=== PATIENT | female | born 1995 | race Caucasian/White ===

== ENCOUNTER 2018-07-09 04:12 | Emergency (ER) | payer BC, OTHER ==
[2018-07-09] MEDS ORDERED: NS 1,700 ML IV ONE (04:32)
[2018-07-09 04:51] LABS: PLATELET COUNT 240 10^3/uL (150-400)
--- NOTE | 2018-07-09 05:24 | EDPHY ---
H & P Stated Complaint: PT DX WITH UTI FROM [facility] LAST NIGHT AND STATES STILL FEELING BAD Time Seen by Provider: 07/09/18 04:23 HPI/ROS: HPI The patient presents with fever, myalgias, chills for the last 3-4 days. She was diagnosed yesterday at urgent care with urinary tract infection and was given a dose of ceftriaxone IM and a prescription for Keflex of which she took 1 tab last night. She has her urinalysis report with her which shows leukocyte esterase. She says she has had temperatures as high as 104 associated with chills, sweats, rigors. She feels achy throughout her body though most prominently in her back and low abdomen. She has been taking Tylenol at home with minimal improvement in her symptoms. She has a history of urinary tract infections but never a kidney infection. She does not have any rhinorrhea, sore throat, cough. She does not have any headache, nausea or vomiting. She is here visiting [facility] from [place].. REVIEW OF SYSTEMS 10 systems were reviewed and negative with the exception of the elements mentioned in the history of present illness. PMHx: History of previous urinary tract infection Soc Hx: [place]iting [place] PHYSICAL General Appearance: Alert, no distress Eyes: Pupils equal and round no pallor or injection ENT, Mouth: Mucous membranes moist Respiratory: There are no retractions, lungs are clear to auscultation Cardiovascular: Tachycardic rate and regular rhythm Gastrointestinal: Abdomen is soft and non-tender, no masses, bowel sounds normal Back: There is right greater than left CVA tenderness Neurological: A&O, moves all extremities Skin: Warm and dry, no rashes Musculoskeletal: Neck is supple non tender Extremities: symmetrical, full range of motion Psychiatric: Patient is oriented X 3, there is no agitation Source: Patient Exam Limitations: No limitations - Personal History LMP (Females 10-55): Over 28 Days Ago Current Tetanus/Diphtheria Vaccine: Yes Current Tetanus Diphtheria and Acellular Pertussis (TDAP): Yes - Medical/Surgical History Hx Asthma: No Hx Chronic Respiratory Disease: No Hx Diabetes: No Hx Cardiac Disease: No Hx Renal Disease: No Hx Cirrhosis: No Hx Alcoholism: No Hx HIV/AIDS: No Hx Splenectomy or Spleen Trauma: No Other PMH: UTIS - Social History Smoking Status: Never smoked Constitutional: Initial Vital Signs Temperature (C) 38.3 C 07/09/18 04:13 Heart Rate 121 H 07/09/18 04:13 Respiratory Rate 16 07/09/18 04:13 Blood Pressure 100/59 L 07/09/18 04:13 O2 Sat (%) 97 07/09/18 04:13 O2 Delivery Mode Room Air Allergies/Adverse Reactions: No Known Allergies Allergy (Unverified 07/09/18 04:19) Home Medications: Medication Instructions Recorded Keflex 500 mg 07/09/18 levOFLOXACIN [Levofloxacin] 750 mg PO DAILY #7 tablet 07/09/18 Medical Decision Making Differential Diagnosis: 22-year-old healthy female presents with several days of fever, chills, back and abdominal pain. On exam, she is tachycardic and febrile. She has CVA tenderness bilaterally on the right greater than left. Her abdominal exam is benign. She has received a dose of ceftriaxone IM and a single dose of Keflex at urgent care yesterday, however her symptoms continue. Differential diagnosis includes pyelonephritis, appendicitis, sepsis. In the emergency department, the patient was given 2 L fluid bolus, Levaquin IV. Basic labs were checked and did reveal a left shift. She is slightly hyperglycemic. Lactate was normal. UA demonstrates signs of urinary tract infection. Blood cultures were sent. She felt much better after receiving medication. Her heart rate normalized while she was here. Blood pressure remained stable. Her pain improved and she felt well enough to go home. I will switch her from Keflex to Levaquin for better kidney penetration. I have discussed return precautions with her. - Data Points Laboratory Results: Laboratory Results 07/09/18 04:35 07/09/18 04:35 07/09/18 07/09/18 07/09/18 05:45 04:35 04:35 WBC 11.63 10^3/uL H 10^3/uL (3.80-9.50) RBC 3.84 10^6/uL L 10^6/uL (4.18-5.33) Hgb 12.0 g/dL L g/dL (12.6-16.3) Hct 34.0 % L % (38.0-47.0) MCV 88.5 fL fL (81.5-99.8) MCH 31.3 pg pg (27.9-34.1) MCHC 35.3 g/dL g/dL (32.4-36.7) RDW 11.6 % % (11.5-15.2) Plt Count 240 10^3/uL 10^3/uL (150-400) MPV 9.9 fL fL (8.7-11.7) Neut % (Auto) 83.4 % H % (39.3-74.2) Lymph % (Auto) 8.6 % L % (15.0-45.0) [place] % (Auto) 7.1 % % (4.5-13.0) Eos % (Auto) 0.3 % L % (0.6-7.6) Baso % (Auto) 0.3 % % (0.3-1.7) Nucleat RBC Rel Count 0.0 % % (0.0-0.2) Absolute Neuts (auto) 9.69 10^3/uL H 10^3/uL (1.70-6.50) Absolute Lymphs (auto) 1.00 10^3/uL 10^3/uL (1.00-3.00) Absolute Monos (auto) 0.83 10^3/uL H 10^3/uL (0.30-0.80) Absolute Eos (auto) 0.04 10^3/uL 10^3/uL (0.03-0.40) Absolute Basos (auto) 0.03 10^3/uL 10^3/uL (0.02-0.10) Absolute Nucleated RBC 0.00 10^3/uL 10^3/uL (0-0.01) Immature Gran % 0.3 % % (0.0-1.1) Immature Gran # 0.04 10^3/uL 10^3/uL (0.00-0.10) VBG Lactic Acid Sodium 135 mEq/L mEq/L (135-145) Potassium 3.5 mEq/L mEq/L (3.3-5.0) Chloride 104 mEq/L mEq/L (97-110) Carbon Dioxide 21 mEq/l L mEq/l (22-31) Anion Gap 10 mEq/L mEq/L (6-14) BUN 11 mg/dL mg/dL (7-23) Creatinine 0.8 mg/dL mg/dL (0.6-1.0) Estimated GFR > 60 Glucose 184 mg/dL H mg/dL (70-100) Calcium 8.5 mg/dL mg/dL (8.5-10.4) Urine Color YELLOW Urine Appearance HAZY Urine pH 6.0 (5.0-7.5) Ur Specific [place] 1.006 (1.002-1.030) Urine Protein NEGATIVE (NEGATIVE) Urine Ketones NEGATIVE (NEGATIVE) Urine Blood NEGATIVE (NEGATIVE) Urine Nitrate NEGATIVE (NEGATIVE) Urine Bilirubin NEGATIVE (NEGATIVE) Urine Urobilinogen NEGATIVE EU EU (0.2-1.0) Ur Leukocyte Esterase 1+ H (NEGATIVE) Urine RBC Pending Urine WBC Pending Ur Epithelial Cells Pending Urine Glucose NEGATIVE (NEGATIVE) 07/09/18 04:35 WBC RBC Hgb Hct MCV MCH MCHC RDW Plt Count MPV Neut % (Auto) Lymph % (Auto) [place] % (Auto) Eos % (Auto) Baso % (Auto) Nucleat RBC Rel Count Absolute Neuts (auto) Absolute Lymphs (auto) Absolute Monos (auto) Absolute Eos (auto) Absolute Basos (auto) Absolute Nucleated RBC Immature Gran % Immature Gran # VBG Lactic Acid 1.5 mmol/L mmol/L (0.7-2.1) Sodium Potassium Chloride Carbon Dioxide Anion Gap BUN Creatinine Estimated GFR Glucose Calcium Urine Color Urine Appearance Urine pH Ur Specific [place] Urine Protein Urine Ketones Urine Blood Urine Nitrate Urine Bilirubin Urine Urobilinogen Ur Leukocyte Esterase Urine RBC Urine WBC Ur Epithelial Cells Urine Glucose Medications Given: Discontinued Medications Levofloxacin/Dextrose (Levaquin 750 Mg (Premix)) 150 mls @ 100 mls/hr IV EDNOW ONE PRN Reason: Protocol Stop: 07/09/18 06:01 Last Admin: 07/09/18 05:01 Dose: 150 mls Sodium Chloride (Ns) 1,700 mls @ 3,400 mls/hr 30 ml/kg infuse over 30 min ( 1700 ml) IV EDNOW ONE PRN Reason: Protocol Stop: 07/09/18 05:01 Last Admin: 07/09/18 04:48 Dose: 1,700 mls Departure - Departure Disposition: Home, Routine, Self-Care Clinical Impression: Pyelonephritis Condition: Good Instructions: Kidney Infection (ED) Additional Instructions: I recommend that you drink plenty of fluids. You should take ibuprofen 400 mg with acetaminophen 1000 mg every 6 hr for your fever. Please stop taking Keflex. I would like for you to take this new antibiotic I am prescribing for you. You should be better within 24 hr and if not you need to come back to the emergency department. Referrals: Albert Loredo MD [Medical Doctor] - As per Instructions Prescriptions: levOFLOXACIN [Levofloxacin] 750 mg PO DAILY #7 tablet
[2018-07-09 06:44] VITALS: BP 86/62
== END 2018-07-09 06:45 | disposition home or self-care (01) ==
DX: N12 Tubulo-interstitial nephritis, not specified as acute or chronic (principal); E86.9 Volume depletion, unspecified
CPT/HCPCS: 96365; J1956